=== PATIENT | female | born 1935 | race Caucasian/White ===

== ENCOUNTER → 2016-07-24 | Outpatient (CLI) | payer OTHER ==
[~2016-07-24] MED LIST: ASPIRIN PO; CALCIUM 600 +1 EAC3 PO; CALTRATE 600 W-1 TAB PO; COLESTIPOL HCL1 G PO; DITROPAN PO; HYDROCODON-ACE1 EAC5 PO; HYDROCODON-ACE1 EACH PO; MULTI VITAMIN1 EACH PO; OMEGA 3 FISH OI1 CAP PO; SYNTHROID75 MCG PO; VIACTIV SOFT C1 EACH PO; WELCHOL625 MG PO; ZETIA; ZETIA PO
--- NOTE | ~2016-07-24 | CT114 ---
[facility] A Service of [facility] & [facility] RADIOLOGY TEXT RESULTS PATIENT: PANCHO CONTRERAS LOCATION: [facility] : 33 UNIT #: [id number] AGE: [address]: Kandace Paniagua MD SEX: F ORDER DR: [id number] [facility] [address] [place], [place] [address] [id number] O MR#: [id number] Acc #: [id number] NAME: PANCHO CONTRERAS : 1935 SEX: F STUDY DATE/TIME: 07/24/2016 8:30 UNIT: [facility] ROOM: STUDY DESCRIPTION: CT Soft Tissue Neck W Cont Attending Physician: Kandace Paniagua M.D., Ph.D. Referring Physician: Kandace Paniagua M.D., Ph.D. Ordering Physician: Kandace Paniagua M.D., Ph.D. Primary Care Physician: David Thomson M.D. 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 Evaluate for neck malignancy suspected. Evaluate for adenopathy. The patient is currently asymptomatic. TECHNIQUE Axial imaging was obtained from the skull base to the upper mediastinum with contrast. 100 mL of Isovue was used. This CT exam was performed with one or more of the following radiation dose reduction techniques: automatic control, adjustment of mA and/or kV according to patient size, and iterative reconstruction. COMPARISON 11/07/2015 FINDINGS The skull base parapharyngeal spaces and pharyngeal mucosal surfaces have a normal appearance. The parotid and submandibular glands show no evidence of mass. The right submandibular gland is atrophic relative to the left. This is unchanged. Vascular structures in the neck are unremarkable. No enlarged lymph nodes are seen. Since the previous examination, 3 enhancing nodules are seen on the right, one located just anterior to the carotid bifurcation, measuring about 8 mm and two nodules posterior to the internal jugular vein above the hyoid and deep to the sternocleidomastoid muscle. These nodules while not pathologically enlarged are all larger than on the previous examination with more intense enhancement. Active lymphoma cannot be excluded. Consider further evaluation with PET/CT scanning. There is an additional small nodule on the right in the supraclavicular area measuring 6-7 mm in diameter. This node while within [facility]. [facility] A Service of [facility] RADIOLOGY TEXT RESULTS PATIENT: PANCHO CONTRERAS LOCATION: [facility] : 33 UNIT #: [id number] AGE: [address]: Kandace Paniagua MD SEX: F ORDER DR: normal limits in size is also new since the previous examination. No new lesions are seen. Soft tissue planes in the larynx are preserved and the trachea is widely patent. IMPRESSION There are four small lymph nodes on the right that while within normal limits in size, they are larger or new since the previous examination and could potentially reflect active lymphoma. The remainder of the neck CT study is unchanged from the previous exam. Dictated by... Alex Espinoza M.D. THIS IS AN ELECTRONICALLY VERIFIED REPORT Alex Espinoza M.D. at 07/25/2016 7:11 AM PEDRO LUIS/renny TD: 07/24/2016 20:13 JOB #: [id number] MEDICAL IMAGING REPORT Page 1 of 1 COPY
--- NOTE | ~2016-07-24 | CT55 ---
[facility] A Service of [facility] & [facility] RADIOLOGY TEXT RESULTS PATIENT: PANCHO CONTRERAS LOCATION: [facility] : 33 UNIT #: [id number] AGE: [address]: Kandace Paniagua MD SEX: F ORDER DR: [id number] [place] [id number] [facility] [place], [place] [address] [id number] O MR#: [id number] Acc #: [id number] NAME: PANCHO CONTRERAS : 1935 SEX: F STUDY DATE/TIME: 07/24/2016 8:30 UNIT: [facility] ROOM: STUDY DESCRIPTION: CT Chest W Con Attending Physician: Kandace Paniagua M.D., Ph.D. Referring Physician: Kandace Paniagua M.D., Ph.D. Ordering Physician: Kandace Paniagua M.D., Ph.D. Primary Care Physician: David Thomson M.D. MEDICAL IMAGING REPORT This report is preliminary unless electronic signature is present EXAM CT chest with contrast dated 07/24/2016 HISTORY An 80-year-old female with history of T-cell lymphoma. Observation for metastatic disease. Restaging. Last chemotherapy treated 1 -year ago per patient. COMPARISON CT chest with contrast 11/07/2015. PROCEDURE 5 mL axial images from the thoracic inlet through the upper abdomen after intravenous contrast administration. Sagittal coronal reformed images were obtained. FINDINGS No suspicious pulmonary nodules or masses are identified. No acute airspace disease is seen. No pathologically enlarged supraclavicular, axillary, mediastinal or hilar lymph nodes are seen. Calcification is demonstrated within the left anterior descending coronary artery. There is mild calcific atherosclerosis within the descending thoracic aorta. Heart size is within normal limits. Benign calcified granuloma is present within the right lower lobe. Degenerative disc endplate changes are demonstrated within the imaged spine. No suspicious osteolytic or osteoblastic abnormalities are evident. Right chest wall Port-A-Cath extends to the lower SVC level. IMPRESSION 1. No evidence of recurrent metastatic disease in the chest since patient history of lymphoma. Findings appear stable compared to the STS. [facility] A Service of [facility] & [facility] RADIOLOGY TEXT RESULTS PATIENT: PANCHO CONTRERAS LOCATION: [facility] : 33 UNIT #: [id number] AGE: [address]: Kandace Paniagua MD SEX: F ORDER DR: CT chest from 11/07/2015. 2. CT abdomen and pelvis performed on the same day has been dictated separately. Dictated by... Mariza Reddy M.D. THIS IS AN ELECTRONICALLY VERIFIED REPORT Mariza Reddy M.D. at 07/25/2016 8:27 AM KO/isauro TD: 07/24/2016 13:26 JOB #: [id number] MEDICAL IMAGING REPORT Page 1 of 1 COPY
--- NOTE | ~2016-07-24 | CT2 ---
[facility] A Service of [facility] & [facility] RADIOLOGY TEXT RESULTS PATIENT: PANCHO CONTRERAS LOCATION: [facility] : 33 UNIT #: [id number] AGE: [address]: Kandace Paniagua MD SEX: F ORDER DR: [id number] [facility] [address] [place], [place] [address] [id number] O MR#: [id number] Acc #: [id number] NAME: PANCHO CONTRERAS : 1935 SEX: F STUDY DATE/TIME: 07/24/2016 8:30 UNIT: [facility] ROOM: STUDY DESCRIPTION: CT Abd and Pelv W Cont Attending Physician: Kandace Paniagua M.D., Ph.D. Referring Physician: Kandace Paniagua M.D., Ph.D. Ordering Physician: Kandace Paniagua M.D., Ph.D. Primary Care Physician: David Thomson M.D. MEDICAL IMAGING REPORT This report is preliminary unless electronic signature is present EXAM CT abdomen and pelvis with contrast DATE 07/24/2016 HISTORY 80-year-old female with T-cell lymphoma. Observation for metastatic disease. Restaging. Patient states no new complaints. Patient states chemotherapy completion approximately [address] abdomen and pelvis with contrast 02/06/2016, 11/29/2015, 11/07/2015. PET/CT 05/29/2015. PROCEDURE 5 mL axial images from the lung bases through the lesser trochanters after intravenous contrast administration. Sagittal and coronal reformatted images were obtained. Enteric contrast was not administered. This CT exam was performed with one or more of the following radiation dose reduction techniques: automatic control, adjustment of mA and/or kV according to patient size, and iterative reconstruction. FINDINGS ABDOMEN FINDINGS: Shotty mesenteric lymph nodes appears stable in size and morphology when carefully compared to the 02/06/2016 examination. A dominant right mid abdominal mesenteric node measures 8 x 12 mm, and appears unchanged. Another dominant mesenteric node in the right upper quadrant of the abdomen measures 9 mm short axis, likewise stable. Small retrocrural and retroperitoneal lymph nodes are stable and do not appear pathologically enlarged. [facility]. [facility] A Service of [facility] & [facility] RADIOLOGY TEXT RESULTS PATIENT: PANCHO CONTRERAS LOCATION: [facility] : 33 UNIT #: [id number] AGE: [address]: Kandace Paniagua MD SEX: F ORDER DR: Cholecystectomy changes are present. Fusiform dilation of the common bile duct up to 12 mm is unchanged from previous exam. Very mild intrahepatic biliary ductal dilation is unchanged from previous study. Spleen size is within normal limits, no focal splenic lesions are identified. There is no ascites. Tiny esophageal hiatal hernia. The pancreas, adrenals and kidneys are within normal limits. There is nakp-me-jynqotwz generalized colonic stool burden. Appendix is not visualized but no pericecal inflammation is appreciated. There is moderate calcific atherosclerosis within the abdominal aorta and iliac arteries. PELVIS Findings: Sigmoid diverticular changes are present without evidence of acute diverticulitis. Uterus is atrophic. Urinary bladder and rectum are normal. No pathologically enlarged pelvic lymph nodes are seen, there is no ascites. Degenerative disc and endplate changes are present at multiple lumbar levels. No suspicious osteolytic or osteoblastic lesions are identified. No acute osseous abnormalities are seen. IMPRESSION 1. There is no convincing evidence of recurrent or metastatic disease in the abdomen and pelvis in this patient with history of lymphoma. Shotty mesenteric, retrocrural/retroperitoneal lymph nodes appear stable, and no pathologically enlarged lymph nodes are seen. 2. Uncomplicated sigmoid diverticulosis. 3. Mild intrahepatic and extrahepatic biliary ductal dilation is stable, likely related to increased capacitance related to previous cholecystectomy. 4. Degenerative changes at multiple lumbar levels. No acute or suspicious osseous abnormalities. Dictated by... Mariza Reddy M.D. THIS IS AN ELECTRONICALLY VERIFIED REPORT Mariza Reddy M.D. at 07/25/2016 8:27 AM KO/renny TD: 07/24/2016 13:33 JOB #: [id number] MEDICAL IMAGING REPORT Page 1 of 1 COPY
[2016-07-24 10:15] LABS: POC - CREATININE 0.75 mg/dL (0.44-1.03); POC - GFR >60.0 mL/min (>60)
== END | disposition home or self-care (01) ==
LOC: CCAT 07:51
PROVIDERS: Internal Medicine Hematology & Oncology
DX: C84.48 Peripheral T-cell lymphoma, not elsewhere classified, lymph nodes of multiple sites (principal); K57.30 Diverticulosis of large intestine without perforation or abscess without bleeding; K83.8 Other specified diseases of biliary tract; M47.896 Other spondylosis, lumbar region; Z90.49 Acquired absence of other specified parts of digestive tract
CPT/HCPCS: 70491; 71260; 74177; 82565; Q9967

== ENCOUNTER → 2016-10-31 | Outpatient (CLI) | payer OTHER ==
--- NOTE | ~2016-10-31 | CT114 ---
[facility] A Service of [facility] & [facility] RADIOLOGY TEXT RESULTS PATIENT: PANCHO CONTRERAS LOCATION: [facility] : 33 UNIT #: [id number] AGE: [address]: Kandace Paniagua MD SEX: F ORDER DR: [id number] [facility] [address] [place], [place] [address] [id number] O MR#: [id number] Acc #: [id number] NAME: PANCHO CONTRERAS : 1935 SEX: F STUDY DATE/TIME: 10/31/2016 13:07 UNIT: [facility] ROOM: STUDY DESCRIPTION: CT Soft Tissue Neck W Cont Attending Physician: Kandace Paniagua M.D., Ph.D. Referring Physician: Kandace Paniagua M.D., Ph.D. Ordering Physician: Kandace Paniagua M.D., Ph.D. Primary Care Physician: David Thomson M.D. MEDICAL IMAGING REPORT This report is preliminary unless electronic signature is present EXAM ct neck soft tissue. INDICATIONS Lymphoma. Restaging. Observation for metastatic disease. Peripheral T-cell lymphoma. TECHNIQUE CT of the neck soft tissue utilizing 75 mL Isovue-370 IV contrast. Coronal and sagittal reconstructions were obtained. The CT exam was performed with one or more of the following radiation dose reduction techniques: automatic exposure control, adjustment of mA and/or kV according to patient size, and iterative reconstruction. COMPARISON CT neck soft tissue 07/24/2016. FINDINGS No pathologically enlarged cervical lymph nodes are identified. There are some small subcentimeter lymph nodes that are stable and/or decreased in size. For example several level 5 lymph nodes are fairly visible on today's study. However, there are at least two lymph nodes in the supraclavicular region that are slightly larger. These are not considered pathologically enlarged. A right subclavicular lymph node measures 0.8 cm and an a slightly more superior lymph node measures 0.6 cm. These lymph nodes previously measured 0.6 and 0.5 cm respectively. No pathologically enlarged left cervical lymph nodes either. The nasopharynx, oropharynx, hypopharynx are within normal limits. [facility] A Service of [facility] & [facility] RADIOLOGY TEXT RESULTS PATIENT: PANCHO CONTRREAS LOCATION: [facility] : 33 UNIT #: [id number] AGE: [address]: Kandace Paniagua MD SEX: F ORDER DR: Laryngeal soft tissues are symmetric. No acute osseous abnormalities. IMPRESSION 1. No pathologically enlarged cervical lymph nodes in the neck. 2. Majority of the lymph nodes in neck are either stable or decreased in size, however there are least 2 lymph nodes that are slightly increased in size. These nodes are not considered to be pathologically enlarged and can be followed. Dictated by... Sincere Churchill M.D. THIS IS AN ELECTRONICALLY VERIFIED REPORT Sincere Churchill M.D. at 11/03/2016 3:42 PM NICOLLE/bay TD: 11/03/2016 13:34 JOB #: [id number] MEDICAL IMAGING REPORT Page 1 of 1 COPY
[2016-10-31 14:51] LABS: POC - CREATININE 0.81 mg/dL (0.44-1.03); POC - GFR >60.0 mL/min (>60)
== END | disposition home or self-care (01) ==
LOC: CCAT 12:00
PROVIDERS: Internal Medicine Hematology & Oncology
DX: C84.48 Peripheral T-cell lymphoma, not elsewhere classified, lymph nodes of multiple sites (principal)
CPT/HCPCS: 70491; 82565; Q9967